=== PATIENT | male | born 1990 | race Caucasian/White ===

== ENCOUNTER 2023-10-21 13:26 | Outpatient (CLI) | payer OTHER, SELFPAY ==
--- NOTE | ~2023-10-21 | MR_ITS ---
EXAMINATION: MR knee LT wo con, MR femur LT wo con DATE: 10/21/2023 14:23 INDICATION: Generalized left knee pain radiating up the left thigh TECHNIQUE: 1. Magnetic resonance imaging (MRI) of the left femur/thigh was performed without intravenous contras t. Sequences included axial, sagittal and coronal T1-weighted FSE and fluid sensitive FSE STIR. The c ontralateral right side is included on the coronal images. 2. MRI of the left knee was performed without intravenous contrast. Sequences included coronal PD-laura ghted FSE, coronal PD-weighted FS FSE, sagittal T2-weighted FSE, sagittal PD-weighted FS FSE and axia l PD weighted fat saturated FSE. COMPARISON: None. FINDINGS: Left thigh: There is normal bone marrow signal throughout with no fracture, osteonecrosis or pathologic marrow re placing process. Normal and symmetric muscle bulk and signal throughout both thighs. Small left and m inimal right hydroceles. No left hip joint effusion. No abnormal masses, fluid collections or patholo gically enlarged left inguinal lymphadenopathy. Left knee: Medial compartment: Medial meniscus is normal. Articular cartilage is normal. Lateral compartment: Lateral meniscus is normal. Articular cartilage is normal. Patellofemoral compartment: Articular cartilage is normal. Ligaments and tendons: Anterior and posterior cruciate ligaments are normal. The medial collateral ligament and fibular shyanne ateral ligament complex are normal. Moderate amount of enthesopathic ossification at the distal quadr iceps tendon. Patellar tendon is normal. The visualized medial and lateral hamstring tendons as well as the iliotibial band are normal. Fluid: Physiologic amount of fluid in the joint space. No loose osteochondral bodies identified. Small Lakhani 's cyst. Osseous/other: Low signal intensity bone island at the lateral femoral condyle. Otherwise normal marrow signal. No f racture or pathologic marrow replacing process. IMPRESSION: 1. 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 Otherwise unrem arkable left knee and thigh MRI. Reviewed, dictated and finalized at location A. IMPRESSION: 1. 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 Otherwise unremarkable left knee and thigh MRI.
== END 2023-10-21 13:27 ==
LOC: MICIMG 13:27
PROVIDERS: PCP Nurse Practitioner Family; Visit Provider Nurse Practitioner Family
DX: M79.652 Pain in left thigh (principal); M25.562 Pain in left knee
CPT/HCPCS: 73718; 73721